=== PATIENT | female | born 1970 | race Caucasian/White ===

== ENCOUNTER 2019-04-26 14:45 | Emergency (ER) | payer MEDICAID ==
[~2019-04-26] VITALS: Ht 162.6 cm; Wt 55.0 kg
[2019-04-26 15:28] LABS: BASOPHILS # (AUTO) 0.04 x10^3/uL (0-0.1); BASOPHILS % (AUTO) 1 % (0-1); EOSINOPHILS # (AUTO) 0.14 x10^3/uL (0-0.4); EOSINOPHILS % (AUTO) 2 % (1-7); LYMPHOCYTES # (AUTO) 2.42 x10^3/uL (1-3.4); LYMPHOCYTES % (AUTO) 38 % (22-44); MD NO; MEAN CORPUSCULAR HEMOGLOBIN 31.5 pg (27.0-34.8); MEAN CORPUSCULAR VOLUME 95.5 fL (80-100); MEAN PLATELET VOLUME 8.8 fL (7.4-10.4); MONOCYTES # (AUTO) 0.53 x10^3/uL (0.2-0.8); MONOCYTES % (AUTO) 8 % (2-9); NEUTROPHILS # (AUTO) 3.27 x10^3/uL (1.8-6.8); NEUTROPHILS % (AUTO) 51 % (42-75); PLATELET COUNT 287 x10^3/uL (130-400); RED BLOOD COUNT 3.81 x10^6/uL (3.82-5.3); RED CELL DISTRIBUTION WIDTH 14.1 % (9.6-15.2)
[2019-04-26] MEDS ORDERED: MECLIZINE CHEWABLE 25 MG TAB PO ONE (15:30)
[2019-04-26 15:36] LABS: ALBUMIN 3.6 g/dL (3.4-5.0); ANION GAP 5 mmol/L (5-15); CALCIUM 8.9 mg/dL (8.5-10.1); CHLORIDE 112 mmol/L (98-107); CREATININE 0.93 mg/dL (0.55-1.02)
[2019-04-26] MEDS ORDERED: MECLIZINE CHEWABLE 25 MG TAB ONE (15:39)
--- NOTE | 2019-04-26 16:00 | NUR ---
MEDICATED FOR DIZZINESS NOTED ON JUL. PT ADDITONALLY C/O SIMEON
[2019-04-26] MEDS ORDERED: DIAZEPAM 5 MG TABLET ONE (16:52)
[2019-04-26] MEDS ORDERED: DIAZEPAM 5 MG TABLET PO ONE (17:00)
--- NOTE | 2019-04-26 17:00 | NUR ---
CONTINES TO FEEL DIZZY SO ADDITIONALLY MEDICATED PER MAR
[2019-04-26 18:14] VITALS: BP 182/100
--- NOTE | 2019-04-26 18:15 | NUR ---
AFTER RECEIVING MEDS NOTED ON JUL, PT STATES SIMEON GONE AND DIZZINESS IMPROVING. AMBULATED TO DISCHARGE WINDOW, STEADY GAIT
== END 2019-04-26 18:19 | disposition home or self-care (01) ==
LOC: ED 15:15
DX: H81.11 Benign paroxysmal vertigo, right ear (principal); R20.2 Paresthesia of skin; I10 Essential (primary) hypertension; F17.200 Nicotine dependence, unspecified, uncomplicated
CPT/HCPCS: 36415; 70450; 80048; 82040; 85025; 93005; 99284

== ENCOUNTER 2019-06-16 10:19 | Emergency (ER) | payer MEDICAID ==
[~2019-06-16] VITALS: Ht 167.6 cm; Wt 57.5 kg
--- NOTE | 2019-06-16 10:36 | NUR ---
TASK RN: UA COLLECTED AND SENT IN TRIAGE
[2019-06-16 11:00] LABS: MICROSCOPIC AUTO
[2019-06-16] MEDS ORDERED: MECLIZINE CHEWABLE 25 MG TAB PO ONE (11:00)
--- NOTE | 2019-06-16 11:00 | NUR ---
ASSUMED CARE OF PT AT THIS TIME. THIS IS A 49 YO FEMALE WHO PRESENTS TO THE ER C/O DIZZINESS X 1 WEEK AND LEFT FLANK PAIN SINCE YESTERDAY MORNING WITH SLIGHT PAINFUL URINATION STARTING THIS MORNING. PT IS AO X 4. SKIN PWD. RESP EVEN AND UNLABORED. PT NSR 60'S ON PLUMBING WAREHOUSE HELPER. CALL LIGHT WITHIN REACH. PT AWARE WE ARE WAITING FOR ORDERS. WILL CONT TO MONITOR PT.
[2019-06-16 11:05] LABS: CULTURE INDICATED? NO
[2019-06-16] MEDS ORDERED: MECLIZINE CHEWABLE 25 MG TAB ONE (11:13)
--- NOTE | 2019-06-16 11:34 | NUR ---
PT CURRENTLY RESTING ON GURNEY. NAD NOTED. PT AO X 4. SKIN PWD. RESP EVEN AND UNLABORED. PT NSR 60'S ON CUSTOMER CONSULTANT. PT REFUSED MECLIZINE STATING "I'VE HAD THAT BEFORE AND IT DID NOTHING, SO I DON'T WANT TO WASTE YOUR MEDICINE". CALL LIGHT WITHIN REACH. WILL CONT TO MONITOR PT.
[2019-06-16 11:58] LABS: BASOPHILS # (AUTO) 0.03 x10^3/uL (0-0.1); BASOPHILS % (AUTO) 1 % (0-1); EOSINOPHILS # (AUTO) 0.13 x10^3/uL (0-0.4); EOSINOPHILS % (AUTO) 2 % (1-7); LYMPHOCYTES # (AUTO) 2.44 x10^3/uL (1-3.4); LYMPHOCYTES % (AUTO) 45 % (22-44); MD NO; MEAN CORPUSCULAR HEMOGLOBIN 30.4 pg (27.0-34.8); MEAN CORPUSCULAR HGB CONC 33.1 g/dL (32.4-35.8); MEAN CORPUSCULAR VOLUME 91.9 fL (80-100); MEAN PLATELET VOLUME 9.1 fL (7.4-10.4); MONOCYTES % (AUTO) 8 % (2-9); NEUTROPHILS # (AUTO) 2.38 x10^3/uL (1.8-6.8); NEUTROPHILS % (AUTO) 44 % (42-75); PLATELET COUNT 267 x10^3/uL (130-400); RED BLOOD COUNT 4.24 x10^6/uL (3.82-5.3); RED CELL DISTRIBUTION WIDTH 13.3 % (9.6-15.2)
[2019-06-16 12:08] LABS: ALBUMIN 3.6 g/dL (3.4-5.0); ANION GAP 1 mmol/L (5-15); CALCIUM 9.4 mg/dL (8.5-10.1); CHLORIDE 110 mmol/L (98-107)
[2019-06-16 12:15] LABS: ALANINE AMINOTRANSFERASE 24 U/L (12-78); ALKALINE PHOSPHATASE 80 U/L (45-117); CREATININE 0.88 mg/dL (0.55-1.02); TOTAL PROTEIN 6.9 g/dL (6.4-8.2)
[2019-06-16 12:22] LABS: BILIRUBIN,TOTAL 0.2 mg/dL (0.2-1.0)
[2019-06-16] MEDS ORDERED: DIAZEPAM 5 MG TABLET ONE (12:49)
[2019-06-16] MEDS ORDERED: ACETAMINOPHEN 325 MG TABLET ONE (12:49)
--- NOTE | 2019-06-16 12:53 | NUR ---
PT MEDICATED REQUESTED BY PT ROE 11/09 SIMEON AND ORDERED BY NICK LEAL. PT REPORTS SHE CANNOT STAY MUCH LONGER D/T "MY RIDE IS COMING". PA NOTIFIED. PT AO X 4. SKIN PWD. RESP EVEN AND UNLABORED. NO ACUTE DISTRESS NOTED AT THIS TIME. FRIEND AT BEDSIDE. CALL LIGHT WITHIN REACH. WILL CONT OT MONITOR PT.
[2019-06-16] MEDS ORDERED: ACETAMINOPHEN 325 MG TABLET PO ONE (13:00)
[2019-06-16] MEDS ORDERED: DIAZEPAM 5 MG TABLET PO ONE (13:00)
[2019-06-16 13:30] VITALS: BP 172/95
== END 2019-06-16 13:33 | disposition home or self-care (01) ==
LOC: ED 11:03
DX: R42 Dizziness and giddiness (principal); R10.9 Unspecified abdominal pain; K21.9 Gastro-esophageal reflux disease without esophagitis; I10 Essential (primary) hypertension; Z90.49 Acquired absence of other specified parts of digestive tract
CPT/HCPCS: 36415; 70450; 74176; 80053; 81001; 84703; 85025; 93005; 99285

== ENCOUNTER 2019-09-01 22:18 | Emergency (ER) | payer MEDICAID ==
[~2019-09-01] VITALS: Ht 162.6 cm; Wt 58.5 kg
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
[2019-09-01 23:02] LABS: BASOPHILS # (AUTO) 0.02 x10^3/uL (0-0.1); BASOPHILS % (AUTO) 0 % (0-1); EOSINOPHILS # (AUTO) 0.05 x10^3/uL (0-0.4); EOSINOPHILS % (AUTO) 1 % (1-7); LYMPHOCYTES # (AUTO) 1.01 x10^3/uL (1-3.4); LYMPHOCYTES % (AUTO) 11 % (22-44); MD NO; MEAN CORPUSCULAR HEMOGLOBIN 30.3 pg (27.0-34.8); MEAN CORPUSCULAR HGB CONC 33.2 g/dL (32.4-35.8); MEAN CORPUSCULAR VOLUME 91.2 fL (80-100); MEAN PLATELET VOLUME 9.1 fL (7.4-10.4); MONOCYTES # (AUTO) 0.83 x10^3/uL (0.2-0.8); MONOCYTES % (AUTO) 9 % (2-9); NEUTROPHILS % (AUTO) 79 % (42-75); PLATELET COUNT 289 x10^3/uL (130-400); RED BLOOD COUNT 4.42 x10^6/uL (3.82-5.3); RED CELL DISTRIBUTION WIDTH 14.3 % (9.6-15.2)
[2019-09-01 23:07] LABS: ALANINE AMINOTRANSFERASE 18 U/L (12-78); ANION GAP 11 mmol/L (5-15); CALCIUM 9.6 mg/dL (8.5-10.1); CHLORIDE 107 mmol/L (98-107); CREATININE 2.02 mg/dL (0.55-1.02); SALICYLATE LEVEL 2.8 mg/dL (2.8-20.0)
[2019-09-01 23:09] LABS: ALKALINE PHOSPHATASE 108 U/L (45-117); BILIRUBIN,TOTAL 0.4 mg/dL (0.2-1.0); TOTAL PROTEIN 7.7 g/dL (6.4-8.2)
[2019-09-01] MEDS ORDERED: SODIUM CHLORIDE 0.9% 1,000 ML IV ONE (23:33)
[2019-09-02] MEDS ORDERED: SODIUM CHLORIDE 0.9% 1,000ML IVBOLUS ONE
--- NOTE | 2019-09-02 00:21 | NUR ---
IV established; fluids initiated. Patient asking about her daughter coming to the hospital stating she called her daughter when she got here. Advised patient that her daughter is the one who called the ambulance for patient and that is how she got to the hospital.
--- NOTE | 2019-09-02 00:50 | NUR ---
Unable to obtain urine at this time. Will try again after fluid bolus.
--- NOTE | 2019-09-02 02:00 | NUR ---
Patient sleeping in rney. Respirations even and unlabored. Sitter outside, room secured, belongings in locked cabinet.
--- NOTE | 2019-09-02 03:43 | NUR ---
Patient sleeping in rney. Respirations even and unlabored. Sitter outside, room secured, belongings in locked cabinet.
--- NOTE | 2019-09-02 04:35 | NUR ---
Patient resting in gurney. Respirations even and unlabored. Labs drawn. Sitter outside, room secured, belongings in locked cabinet.
[2019-09-02 05:24] LABS: CREATININE 1.32 mg/dL (0.55-1.02)
[2019-09-02 05:45] VITALS: BP 135/73
--- NOTE | 2019-09-02 05:48 | NUR ---
Patient talking to herself as if she's talking on the phone, stating, "when are you coming to pick me up in the morning?" Nobody is in the room and all belongings locked in cabinet. Patient calm and cooperative. Provided urine sample; sent to lab.
[2019-09-02 06:12] LABS: AMPHETAMINE SCREEN, URINE Negative (Negative); BARBITURATE SCREEN, URINE Negative (Negative); BENZODIAZEPINE SCREEN, URINE Negative (Negative); CANNABINOID SCREEN, URINE Negative (Negative); COCAINE SCREEN, URINE Negative (Negative); METHADONE SCREEN, URINE Negative (Negative); OPIATE SCREEN, URINE Negative (Negative)
--- NOTE | 2019-09-02 06:13 | NUR ---
Per Dr. Rae MD, patient is medically cleared and fit for psych placement.
[2019-09-02 06:15] LABS: MICROSCOPIC INDICATED
[2019-09-02 06:17] LABS: CULTURE INDICATED? YES
--- NOTE | 2019-09-02 06:50 | NUR ---
Report given to MARGO Garcia.
--- NOTE | 2019-09-02 09:16 | NUR ---
PT MOVED TO HOSPITAL BED THIS AM, PT REMAINS IN SECURE RM WITH SITTER IN PLACE. PT ATE ALL OF AM MEAL TRAY. NO OTHER NEEDS EXPRESSED
--- NOTE | 2019-09-02 10:30 | NUR ---
THROUGHPUT: U AWAITING PRIOR AUTH FOR PT ACCEPTANCE & TRANSFER.
--- NOTE | 2019-09-02 11:46 | NUR ---
PT RESTING ON HOSPITAL BED A THIS TIME, PT WITH NO NEEDS CURRENTLY. SI PRECAUTIONS IN PLACE. MEAL TRAY ORDERED
--- NOTE | 2019-09-02 12:25 | NUR ---
LUNCH RN: PT RESTING IN ROOM, NO ASSISTNACE NEEDED. PT HAS NO NEEDS. SUICIDE PRECAUTIONS REMAIN, SITTER OUTSDIE ROOM FOR CONTINOUS MONITORING.
--- NOTE | 2019-09-02 13:25 | NUR ---
REPORT CALLED TO RECIEVING RN
== END 2019-09-02 13:39 ==
LOC: ED 22:40
DX: T43.211A Poisoning by selective serotonin and norepinephrine reuptake inhibitors, accidental (unintentional), initial encounter (principal); R45.851 Suicidal ideations; F17.200 Nicotine dependence, unspecified, uncomplicated; I10 Essential (primary) hypertension; K21.9 Gastro-esophageal reflux disease without esophagitis; F32.9 Major depressive disorder, single episode, unspecified; Y92.9 Unspecified place or not applicable; Z90.49 Acquired absence of other specified parts of digestive tract
CPT/HCPCS: 36415; 80053; 80307; 81001; 82565; 85025; 87086; 93005; 99285; J7030

== ENCOUNTER 2019-09-02 12:56 | Inpatient (IN) | payer MEDICAID ==
[~2019-09-02] VITALS: Ht 160 cm; Wt 58.3 kg
[2019-09-02] MEDS ORDERED: DOCUSATE 100 MG CAPSULE PO PRN (13:30)
[2019-09-02] MEDS ORDERED: POLYETHYLENE GLYCOL 17 GM PACKET PO PRN (13:30)
[2019-09-02] MEDS ORDERED: BISACODYL 10 MG SUPP PR PRN (13:30)
[2019-09-02] MEDS ORDERED: LIDODERM 5% PATCH TD PRN (14:00)
[2019-09-02] MEDS ORDERED: LIDODERM REMOVE PATCH NOTE XX PRN (14:30)
[2019-09-02] MEDS ORDERED: AMLODIPINE 5 MG TABLET PO PRN (14:30)
[2019-09-02 14:37] VITALS: BP 127/76
[2019-09-02 19:15] VITALS: BP 127/76
[2019-09-03 06:01] LABS: ANION GAP 5 mmol/L (5-15); CALCIUM 8.9 mg/dL (8.5-10.1); CHLORIDE 114 mmol/L (98-107); CHOLESTEROL, TOTAL 182 mg/dL (140-239); CREATININE 1.02 mg/dL (0.55-1.02)
[2019-09-03 06:12] LABS: CHOL/HDL RATIO 2.6; FREE T4 (FREE THYROXINE) 1.22 ng/dL (0.76-1.46); HDL CHOL % 38 % (28-40); HDL CHOLESTEROL (DIRECT) 69 mg/dL (40-60); LDL CHOLESTEROL,CALCULATED 99 mg/dL (54-169); LDL/HDL RATIO 1.4 (0.5-3.0); TRIGLYCERIDES 72 mg/dL (50-200); VLDL CHOLESTEROL 14 mg/dL (0-25)
[2019-09-03 07:30] VITALS: BP 134/79
[2019-09-03] MEDS: NICOTINE 7 MG/24 HR PATCH.TD24 TD SCH (08:46)
[2019-09-03] MEDS: LURASIDONE 20 MG TABLET PO SCH (11:12)
[2019-09-03] MEDS: SERTRALINE 50MG TABLET PO SCH (11:13)
[2019-09-03 19:15] VITALS: BP 146/89
[2019-09-04] MEDS ORDERED: OMEP40CA42 PO (05:06)
[2019-09-04 07:52] VITALS: BP 151/87
[2019-09-04] MEDS: LURASIDONE 20 MG TABLET PO SCH (08:47)
[2019-09-04] MEDS: NICOTINE 7 MG/24 HR PATCH.TD24 TD SCH (08:47)
[2019-09-04] MEDS: LISINOPRIL 20 MG TABLET PO SCH ×2 (08:48→20:56)
[2019-09-04] MEDS: SERTRALINE 50MG TABLET PO SCH (08:48)
[2019-09-04 13:32] VITALS: BP 129/83
[2019-09-04] MEDS: ACETAMINOPHEN 325 MG TABLET PO PRN (14:40)
[2019-09-04 19:25] VITALS: BP 148/83
[2019-09-05 07:25] VITALS: BP 158/91
[2019-09-05] MEDS: SERTRALINE 50MG TABLET PO SCH (08:32)
[2019-09-05] MEDS: LISINOPRIL 20 MG TABLET PO SCH ×2 (08:32→20:54)
[2019-09-05] MEDS: LURASIDONE 20 MG TABLET PO SCH (08:32)
[2019-09-05] MEDS: NICOTINE 7 MG/24 HR PATCH.TD24 TD SCH (08:32)
[2019-09-05] MEDS: ACETAMINOPHEN 325 MG TABLET PO PRN (18:38)
[2019-09-05 19:15] VITALS: BP 163/85
[2019-09-06] MEDS: PANTOPRAZOLE 40MG TABLET PO SCH (05:49)
[2019-09-06 07:50] VITALS: BP 135/86
[2019-09-06] MEDS: ACETAMINOPHEN 325 MG TABLET PO PRN ×2 (09:29→20:35)
[2019-09-06] MEDS: LURASIDONE 20 MG TABLET PO SCH (09:29)
[2019-09-06] MEDS: LISINOPRIL 20 MG TABLET PO SCH ×2 (09:29→20:29)
[2019-09-06] MEDS: SERTRALINE 50MG TABLET PO SCH (09:29)
[2019-09-06] MEDS: NICOTINE 7 MG/24 HR PATCH.TD24 TD SCH (09:30)
[2019-09-06 19:10] VITALS: BP 164/75
[2019-09-07] MEDS: PANTOPRAZOLE 40MG TABLET PO SCH (05:30)
[2019-09-07 07:00] VITALS: BP 132/77
[2019-09-07] MEDS: ACETAMINOPHEN 325 MG TABLET PO PRN ×2 (08:01→19:49)
[2019-09-07] MEDS: LURASIDONE 20 MG TABLET PO SCH (08:02)
[2019-09-07] MEDS: NICOTINE 7 MG/24 HR PATCH.TD24 TD SCH (08:02)
[2019-09-07] MEDS: LISINOPRIL 20 MG TABLET PO SCH ×2 (08:02→19:50)
[2019-09-07] MEDS: SERTRALINE 50MG TABLET PO SCH (08:02)
[2019-09-07] MEDS: HYDROXYZINE PAMOATE 25MG CAP PO PRN (15:40)
[2019-09-07 19:56] VITALS: BP 141/88
[2019-09-08] MEDS: PANTOPRAZOLE 40MG TABLET PO SCH (05:38)
[2019-09-08 07:00] VITALS: BP 119/79
[2019-09-08] MEDS: LISINOPRIL 20 MG TABLET PO SCH ×2 (09:01→20:34)
[2019-09-08] MEDS: LURASIDONE 20 MG TABLET PO SCH (09:01)
[2019-09-08] MEDS: SERTRALINE 50MG TABLET PO SCH (09:01)
[2019-09-08] MEDS: NICOTINE 7 MG/24 HR PATCH.TD24 TD SCH (09:02)
[2019-09-08] MEDS: HYDROXYZINE PAMOATE 25MG CAP PO PRN ×2 (09:08→20:33)
[2019-09-08] MEDS: ACETAMINOPHEN 325 MG TABLET PO PRN ×2 (09:08→20:34)
[2019-09-08 19:15] VITALS: BP 135/87
[2019-09-09] MEDS: PANTOPRAZOLE 40MG TABLET PO SCH (05:39)
[2019-09-09 07:31] VITALS: BP 127/79
[2019-09-09] MEDS: LURASIDONE 20 MG TABLET PO SCH (08:21)
[2019-09-09] MEDS: LISINOPRIL 20 MG TABLET PO SCH ×2 (08:22→20:09)
[2019-09-09] MEDS: SERTRALINE 50MG TABLET PO SCH (08:22)
[2019-09-09] MEDS: NICOTINE 7 MG/24 HR PATCH.TD24 TD SCH (08:23)
[2019-09-09] MEDS: ACETAMINOPHEN 325 MG TABLET PO PRN ×3 (08:29→20:09)
[2019-09-09] MEDS: HYDROXYZINE PAMOATE 25MG CAP PO PRN ×2 (08:30→20:09)
[2019-09-09] MEDS ORDERED: AMLO-150 PO (10:47)
[2019-09-09] MEDS ORDERED: NICO-485 TD (10:47)
[2019-09-09] MEDS ORDERED: HYDR25CA94 PO (10:47)
[2019-09-09] MEDS ORDERED: SERT50TA28 PO (10:47)
[2019-09-09] MEDS ORDERED: LURA20TA PO (10:47)
[2019-09-09] MEDS ORDERED: PANT40TA5 PO (10:47)
[2019-09-09] MEDS ORDERED: LISI-170 PO (10:47)
[2019-09-09 19:53] VITALS: BP 132/83
[2019-09-10] MEDS: PANTOPRAZOLE 40MG TABLET PO SCH (06:20)
[2019-09-10 07:30] VITALS: BP 109/67
[2019-09-10] MEDS: LURASIDONE 20 MG TABLET PO SCH (09:01)
[2019-09-10] MEDS: LISINOPRIL 20 MG TABLET PO SCH ×2 (09:01→20:49)
[2019-09-10] MEDS: NICOTINE 7 MG/24 HR PATCH.TD24 TD SCH (09:02)
[2019-09-10] MEDS: HYDROXYZINE PAMOATE 25MG CAP PO PRN ×2 (09:02→20:49)
[2019-09-10] MEDS: SERTRALINE 50MG TABLET PO SCH (09:02)
[2019-09-10 19:55] VITALS: BP 121/80
[2019-09-11] MEDS: PANTOPRAZOLE 40MG TABLET PO SCH (05:42)
[2019-09-11 07:30] VITALS: BP 123/74
[2019-09-11] MEDS: LURASIDONE 20 MG TABLET PO SCH (08:23)
[2019-09-11] MEDS: NICOTINE 7 MG/24 HR PATCH.TD24 TD SCH (08:23)
[2019-09-11] MEDS: LISINOPRIL 20 MG TABLET PO SCH (08:23)
[2019-09-11] MEDS: SERTRALINE 50MG TABLET PO SCH (08:23)
[2019-09-11] MEDS: HYDROXYZINE PAMOATE 25MG CAP PO PRN (08:23)
== END 2019-09-11 15:15 | disposition home or self-care (01) | DRG 885 ==
LOC: 3E 13:46
PROVIDERS: ADMIT Psychiatry & Neurology Psychosomatic Medicine; ATTEND Psychiatry & Neurology Psychosomatic Medicine
DX: F33.2 Major depressive disorder, recurrent severe without psychotic features (principal); N17.9 Acute kidney failure, unspecified; F10.21 Alcohol dependence, in remission; F17.210 Nicotine dependence, cigarettes, uncomplicated; F41.9 Anxiety disorder, unspecified; G47.00 Insomnia, unspecified; I10 Essential (primary) hypertension; K21.9 Gastro-esophageal reflux disease without esophagitis; G89.29 Other chronic pain; M19.90 Unspecified osteoarthritis, unspecified site; Z79.1 Long term (current) use of non-steroidal anti-inflammatories (NSAID); Z83.3 Family history of diabetes mellitus; Z79.899 Other long term (current) drug therapy; Z90.711 Acquired absence of uterus with remaining cervical stump; Z98.84 Bariatric surgery status; Z90.710 Acquired absence of both cervix and uterus; Z90.49 Acquired absence of other specified parts of digestive tract; Z91.5 Personal history of self-harm
CPT/HCPCS: 36415; 71045; 80048; 80061; 82043; 82140; 82550; 82570; 84439; 84443

== ENCOUNTER 2020-01-19 11:20 | Emergency (ER) | payer MEDICAID ==
[~2020-01-19] VITALS: Ht 167.6 cm; Wt 62.8 kg
[~2020-01-19 11:20] MED LIST: AMLO-150 PO; HYDR25CA94 PO; LISI-170 PO; LURA20TA PO; NICO-485 TD; OMEP40CA42 PO; PANT40TA6 PO; SERT50TA28 PO
[2020-01-19 11:22] VITALS: BP 113/79
--- NOTE | 2020-01-19 11:53 | NUR ---
PT WITH C/O BLADDER PAIN, PT WITH HX UTI. PT DOES HAVE INCREASED FREQUENCY, PAINFUL URINATION. UA SAMPLE COLLECTED AND SENT TO LAB
[2020-01-19 12:08] LABS: MICROSCOPIC NOT IND
--- NOTE | 2020-01-19 12:14 | NUR ---
PT TO IMAGING AT THIS TIME
[2020-01-19 12:30] LABS: MEAN CORPUSCULAR HEMOGLOBIN 28.6 pg (27.0-34.8); MEAN CORPUSCULAR HGB CONC 32.3 g/dL (32.4-35.8); MEAN CORPUSCULAR VOLUME 88.3 fL (80-100); MEAN PLATELET VOLUME 9.6 fL (7.4-10.4); PLATELET COUNT 240 x10^3/uL (130-400); RED BLOOD COUNT 4.49 x10^6/uL (3.82-5.3); RED CELL DISTRIBUTION WIDTH 17.1 % (9.6-15.2)
[2020-01-19 12:38] LABS: ALBUMIN 3.5 g/dL (3.4-5.0); ANION GAP 5 mmol/L (5-15); CALCIUM 9.2 mg/dL (8.5-10.1); CHLORIDE 114 mmol/L (98-107); CREATININE 0.96 mg/dL (0.55-1.02)
[2020-01-19 13:08] LABS: BASOPHILS # (AUTO) 0.04 x10^3/uL (0-0.1); BASOPHILS % (AUTO) 1 % (0-1); EOSINOPHILS # (AUTO) 0.06 x10^3/uL (0-0.4); EOSINOPHILS % (AUTO) 1 % (1-7); LYMPHOCYTES % (AUTO) 36 % (22-44); MD SCAN; MONOCYTES # (AUTO) 0.52 x10^3/uL (0.2-0.8); MONOCYTES % (AUTO) 8 % (2-9); NEUTROPHILS # (AUTO) 3.79 x10^3/uL (1.8-6.8); NEUTROPHILS % (AUTO) 55 % (42-75)
== END 2020-01-19 13:43 | disposition home or self-care (01) ==
LOC: ED 11:57
DX: R10.30 Lower abdominal pain, unspecified (principal); K21.9 Gastro-esophageal reflux disease without esophagitis; I10 Essential (primary) hypertension
CPT/HCPCS: 36415; 74021; 80048; 81003; 82040; 85025; 99284

== ENCOUNTER 2020-05-03 21:43 | Emergency (ER) | payer MEDICAID ==
[~2020-05-03] VITALS: Ht 160 cm; Wt 61.0 kg
--- NOTE | 2020-05-03 22:36 | NUR ---
Up to br urine sample collected and sent.
[2020-05-03 23:08] VITALS: BP 135/78
== END 2020-05-03 23:10 | disposition home or self-care (01) ==
LOC: ED 23:00
DX: S32.2XXA Fracture of coccyx, initial encounter for closed fracture (principal); I10 Essential (primary) hypertension; K21.9 Gastro-esophageal reflux disease without esophagitis; F17.210 Nicotine dependence, cigarettes, uncomplicated; W01.0XXA Fall on same level from slipping, tripping and stumbling without subsequent striking against object, initial encounter; Y93.89 Activity, other specified; Y92.512 Supermarket, store or market as the place of occurrence of the external cause; Y99.8 Other external cause status
CPT/HCPCS: 72110; 72220; 99284; 99406

== ENCOUNTER 2020-07-27 22:32 | Emergency (ER) | payer OTHER, MEDICAID ==
[~2020-07-27] VITALS: Ht 160 cm; Wt 57.1 kg
[2020-07-27 22:36] VITALS: BP 115/77
[2020-07-27] MEDS ORDERED: CYCLOBENZAPRINE 10 MG TABLET ONE (22:56)
[2020-07-27] MEDS ORDERED: OXYcodone/APAP 10/325MG TABLET ONE (22:57)
[2020-07-27] MEDS ORDERED: OXYcodone/APAP 10/325MG TABLET PO ONE (23:00)
[2020-07-27] MEDS ORDERED: CYCLOBENZAPRINE 10 MG TABLET PO ONE (23:00)
--- NOTE | 2020-07-27 23:10 | NUR ---
Patient given discharge instructions and they have confirmed that they understand the instructions. Patient ambulatory with steady gait.
== END 2020-07-27 23:12 | disposition home or self-care (01) ==
LOC: ED 23:09
DX: S39.012A Strain of muscle, fascia and tendon of lower back, initial encounter (principal); M54.42 Lumbago with sciatica, left side; M54.17 Radiculopathy, lumbosacral region; F17.210 Nicotine dependence, cigarettes, uncomplicated; K21.9 Gastro-esophageal reflux disease without esophagitis; I10 Essential (primary) hypertension; Z90.49 Acquired absence of other specified parts of digestive tract; Z88.8 Allergy status to other drugs, medicaments and biological substances; Z88.6 Allergy status to analgesic agent; W18.30XA Fall on same level, unspecified, initial encounter; Y93.89 Activity, other specified; Y92.89 Other specified places as the place of occurrence of the external cause; Y99.8 Other external cause status
CPT/HCPCS: 99283; 99406